=== PATIENT | female | born 1960 | race Caucasian/White ===

== ENCOUNTER 2025-03-15 09:50 | Outpatient (CLI) | payer OTHER | END 2025-03-15 09:51 | disposition home or self-care (01) | LOC: BICCT 09:50 | PROVIDERS: ATTEND Orthopaedic Surgery | DX: Z01.818 Encounter for other preprocedural examination (principal); M17.12 Unilateral primary osteoarthritis, left knee ==

== ENCOUNTER 2025-03-15 11:32 | Outpatient (CLI) | payer BC ==
[2025-03-15 13:05] LABS: #Basophils 0.06 10x3/uL (0.0-0.2); #Eosinophils 0.21 10x3/uL (0.0-0.7); #Monocytes 0.71 10x3/uL (0.11-0.59); #Neutrophils 4.74 10x3/uL (1.40-6.50); %Basophils 0.7 % (0.0-1.0); %Eosinophils 2.4 % (0.0-10.0); %Lymphocytes 33.0 % (21.0-51.0); %Monocytes 8.3 % (0.0-10.0); %Neutrophils 55.1 % (42.0-75.0); Hematocrit 45.0 % (36.0-47.0); Hemoglobin 14.5 g/dL (12.0-16.0); Mean Corpuscular Hemoglobin 30.1 pg (27.0-31.0); Mean Corpuscular Volume 93.4 fL (78.0-98.0); Platelet Count 267 10x3/uL (130-400); Red Blood Cell (RBC) Count 4.82 mill/uL (4.20-5.40); White Blood Cell (WBC) Count 8.60 10x3/uL (4.8-10.8)
[2025-03-15 13:21] LABS: INR-International Normal Ratio 1.0; Prothrombin Time 13.3 sec (12.0-14.7)
[2025-03-15 13:22] LABS: Bacteria/HPF None Seen HPF (None Seen); Glucose, Urine (Dipstick) Normal (Negative); Leukocyte Negative Leu/uL (Negative); Protein, Urine (Dipstick) Negative (Neg-Trace); RBC/HPF 0-3 HPF (0-3); Specific Gravity, Urine 1.025 (1.002-1.036); WBC/HPF 0-3 HPF (0-3)
[2025-03-15 13:29] LABS: Anion Gap 16 mmol/L (10-20); BUN (Urea Nitrogen) 27 mg/dL (9.8-20.1); Calc. Creatinine Clearance 0 mL/min (70-130); Calcium 9.5 mg/dL (7.8-10.44); Carbon Dioxide 26 mmol/L (23-31); Chloride 105 mmol/L (98-107); Glucose 100 mg/dL (80-115); Potassium 4.0 mmol/L (3.5-5.1); Sodium 143 mmol/L (136-145)
== END 2025-03-15 11:33 | disposition home or self-care (01) ==
LOC: LABBT 11:32
PROVIDERS: ATTEND Orthopaedic Surgery
DX: Z01.818 Encounter for other preprocedural examination (principal); M17.12 Unilateral primary osteoarthritis, left knee
CPT/HCPCS: 71046; 80048; 81001; 85025; 85610; 87081; 93005; 93010

== ENCOUNTER 2025-03-22 08:58 | Inpatient (IN) | payer BC ==
[2025-03-22] MEDS ORDERED: Tranexamic Acid 1,000 MG/10 ML VIAL ONE ×2 (09:18→14:43)
[2025-03-22] MEDS ORDERED: CEFAZOLIN 2 GM VIAL ONE ×2 (09:18→17:52)
[2025-03-22] MEDS ORDERED: Vancomycin HCl 1.5 GM VIAL ONE (09:19)
[2025-03-22] MEDS ORDERED: Ropivacaine 0.5% HCl/PF (150 MG/30 ML VIAL) ONE (10:10)
[2025-03-22] MEDS ORDERED: Ondansetron PF 4 MG/2 ML Vial IVP PRN ×2 (10:30→13:14)
[2025-03-22] MEDS ORDERED: Ropivacaine 0.2% 550 ML 550 ML NERVE BLCK SCH (10:30)
[2025-03-22] MEDS ORDERED: HYDROcodone/Acetaminophen 10/325 mg Tablet PO PRN (10:30)
[2025-03-22] MEDS ORDERED: Bupivacaine 0.25% HCL 30 ML VIAL ONE (11:11)
[2025-03-22] MEDS ORDERED: Lidocaine 1% PF 5 ML VIAL ONE (11:26)
[2025-03-22] MEDS ORDERED: Ondansetron PF 4 MG/2 ML Vial ONE ×2 (11:27→16:38)
[2025-03-22] MEDS ORDERED: fentaNYL PF 100 MCG/2 ML SYRINGE ONE (11:27)
[2025-03-22] MEDS ORDERED: PROPOFOL 20 ML ONE ×2 (11:27→11:38)
[2025-03-22] MEDS ORDERED: HYDROmorphone 2 MG/ML VIAL ONE (11:46)
[2025-03-22] MEDS ORDERED: PHENYLEPHRINE-NS 100 MCG/ML 10 ML SYRINGE ONE (11:58)
[2025-03-22] MEDS ORDERED: Acetaminophen 325 MG TAB PO PRN (13:14)
[2025-03-22] MEDS ORDERED: diphenhydrAMINE 25 MG CAP PO PRN (13:14)
[2025-03-22] MEDS ORDERED: HYDROmorphone 0.5 MG/0.5 ML SYRINGE ONE (13:55)
[2025-03-22] MEDS ORDERED: Ketorolac Tromethamine 30 MG (1 mL) VIAL ONE (16:07)
[2025-03-22] MEDS: Ketorolac Tromethamine 30 MG (1 mL) VIAL IVP SCH (16:11)
[2025-03-22 17:12] VITALS: BMI 38.9
[2025-03-22] MEDS: HYDROcodone/Acetaminophen 10/325 mg Tablet PO PRN (20:26)
[2025-03-22] MEDS: Sertraline 100 MG TAB PO SCH (20:27)
[2025-03-22] MEDS: Aspirin 81 mg Enteric Coated Tablet PO SCH (20:28)
[2025-03-23] MEDS: Levothyroxine 150 MCG TAB PO SCH (05:32)
[2025-03-23 06:06] LABS: Hematocrit 37.9 % (36.0-47.0); Hemoglobin 12.0 g/dL (12.0-16.0); Mean Corpuscular Hemoglobin 29.9 pg (27.0-31.0); Mean Corpuscular Volume 94.5 fL (78.0-98.0); Platelet Count 212 10x3/uL (130-400); Red Blood Cell (RBC) Count 4.01 mill/uL (4.20-5.40); White Blood Cell (WBC) Count 7.34 10x3/uL (4.8-10.8)
[2025-03-23 06:14] VITALS: BMI 39.3
[2025-03-23] MEDS: Multivitamin W/ Minerals 1 TAB PO SCH (08:53)
[2025-03-23] MEDS: Senokot S 8.6-50 MG TAB PO SCH (08:53)
[2025-03-23] MEDS: Ezetimibe 10 MG TAB PO SCH (08:53)
[2025-03-23] MEDS: Metoprolol Succinate XL 100 MG ER.TAB PO SCH (08:53)
[2025-03-23] MEDS: Zonisamide 100 MG CAP PO SCH (08:53)
[2025-03-23] MEDS: Ferrous Gluconate 324 MG TAB PO SCH (08:53)
[2025-03-24 03:39] VITALS: TEMP 97.8
[2025-03-24 05:27] LABS: Hematocrit 36.6 % (36.0-47.0); Hemoglobin 11.4 g/dL (12.0-16.0); Mean Corpuscular Hemoglobin 30.1 pg (27.0-31.0); Mean Corpuscular Volume 96.6 fL (78.0-98.0); Platelet Count 189 10x3/uL (130-400); Red Blood Cell (RBC) Count 3.79 mill/uL (4.20-5.40); White Blood Cell (WBC) Count 7.39 10x3/uL (4.8-10.8)
[2025-03-24 12:00] VITALS: BP 139/76
== END 2025-03-24 11:55 | disposition home or self-care (01) | DRG 470 ==
LOC: SDC 08:58 → SURG B 13:14 → OBSVTOIN 03-23 15:50
PROVIDERS: ADMIT Orthopaedic Surgery; ATTEND Orthopaedic Surgery
PROC: 0SRD0JA Replacement of Left Knee Joint with Synthetic Substitute, Uncemented, Open Approach (ICD-10-PCS; principal; 2025-03-22)
PROC: 3E03329 Introduction of Other Anti-infective into Peripheral Vein, Percutaneous Approach (ICD-10-PCS; 2025-03-22)
DX: M17.12 Unilateral primary osteoarthritis, left knee (principal); Z98.891 History of uterine scar from previous surgery; Z98.890 Other specified postprocedural states; E03.9 Hypothyroidism, unspecified; Z79.899 Other long term (current) drug therapy; Z79.890 Hormone replacement therapy
CPT/HCPCS: 36415; 85027; A4306; C1713; C1776; C1889; J0665; J1100; J1171; J1885; J2250; J2704; J2795; J7030